=== PATIENT | female | born 1995 | race Caucasian/White ===

== ENCOUNTER 2017-03-23 10:11 | Emergency (ER) | payer OTHER ==
[~2017-03-23] VITALS: Ht 165.1 cm; Wt 57.0 kg
[~2017-03-23 10:11] MED LIST: PRENAT PO
[2017-03-23 10:23] VITALS: Ht 165.1 cm; Wt 57.0 kg
[2017-03-23] MEDS ORDERED: SOD CHLORIDE 0.9% 1,000 ML IV STA (11:02)
[2017-03-23] MEDS ORDERED: ACETAMINOPHEN 325 MG TAB PO STA (11:02)
[2017-03-23] MEDS ORDERED: ONDANSETRON 4 MG INJ IV STA (11:02)
--- NOTE | 2017-03-23 11:45 | RADRPT ---
PROCEDURE: OBSTETRICAL ULTRASOUND WITH ENDOVAGINAL IMAGES CLINICAL INDICATION: Vaginal Bleed () TECHNIQUE: Multiple sonographic images of the pelvis were obtained utilizing a transabdominal and endovaginal technique. The images were reviewed on a PACS workstation. COMPARISON: None. LMP: 12/27/2016 FINDINGS: There is a single live intrauterine with heart rate of 146 beats per minute, mean sa c diameter of 4.93 cm, and crown-rump length of 6.52 cm which is consistent with a gestational age o f 12 weeks, 0 days . The estimated date of delivery by ultrasound is 10/05/2017 . The estimated gestational age by LMP is 12 weeks, 2 days . The estimated date of delivery by LMP is 10/03/2017 . Bilateral ovaries are not visualized. There are no abnormal adnexal masses. No significant pelvic free fluid is identified. IMPRESSION: Single live intrauterine consistent with a gestational age of 12 weeks, 0 days . The estimated date of delivery is 10/05/2017 . Dating by ultrasound is within 2 days of dating by LMP. Bilateral ovaries are not visualized. There are no abnormal adnexal masses. RPTAT: EE Physician Yung Date Time Electronically viewed and signed by Physician Yung on 03/23/2017 11:44 /
[2017-03-23 11:49] LABS: ADD SCAN DIFF NO
[2017-03-23 11:58] LABS: BASOPHILS % 0.2 % (0.0-2.0); EOSINOPHILS % 0.5 % (0.0-7.0); HEMATOCRIT 37.5 % (37.0-47.0); HEMOGLOBIN 12.6 g/dl (12.0-16.0); LYMPHOCYTES # 2.3 10^3/ul (0.8-2.9); LYMPHOCYTES % 26.6 % (15.0-51.0); MEAN CORPUSCULAR HEMOGLOBIN 31.5 pg (29.0-33.0); MEAN CORPUSCULAR HGB CONC 33.6 g/dl (32.0-37.0); MEAN CORPUSCULAR VOLUME 93.8 fl (82.0-101.0); MEAN PLATELET VOLUME 9.2 fl (7.4-10.4); MONOCYTE # 0.4 10^3/ul (0.3-0.9); MONOCYTES % 5.2 % (0.0-11.0); NEUTROPHIL # 5.7 10^3/ul (1.6-7.5); NEUTROPHILS % 67.1 % (39.0-77.0); PLATELET COUNT 269 10^3/UL (140-415); RED CELL DISTRIBUTION WIDTH 12.2 % (11.5-14.5); WHITE BLOOD COUNT 8.5 10^3/ul (4.8-10.8)
[2017-03-23 12:13] LABS: ADD UMIC YES; UR AMORPHOUS CRYSTAL FEW /HPF (NONE SEEN); UR ASCORBIC ACID NEGATIVE (NEGATIVE); UR BILIRUBIN (Dip) NEGATIVE (NEGATIVE); UR BLOOD (Dip) NEGATIVE (NEGATIVE); UR CLARITY SLIGHTLY CLOUDY (CLEAR); UR COLOR YELLOW (YELLOW); UR GLUCOSE (Dip) NEGATIVE (NEGATIVE); UR KETONES (Dip) NEGATIVE (NEGATIVE); UR LEUKOCYTE ESTERASE (Dip) 1+ Leu/ul (NEGATIVE); UR NITRITE (Dip) POSITIVE (NEGATIVE); UR RBC 0 /HPF (0-5); UR TOTAL PROTEIN (Dip) NEGATIVE (NEGATIVE); UR UROBILINOGEN (Dip) NEGATIVE (NEGATIVE)
[2017-03-23 12:19] LABS: INR 0.99; PROTIME 13.1 Sec (12.2-14.2)
[2017-03-23 12:21] LABS: PARTIAL THROMBOPLASTIN TIME 27.5 Sec (25.0-35.0)
[2017-03-23] MEDS ORDERED: CEPH-443 PO (12:24)
[2017-03-23 13:24] LABS: ALBUMIN/GLOBULIN RATIO 1.35; BILIRUBIN,INDIRECT 0.3 mg/dl (0-1.1); BILIRUBIN,TOTAL 0.3 mg/dl (0.2-1.3); CALCIUM 9.6 mg/dl (8.4-10.2); CREATININE 0.58 mg/dl (0.44-1.00); TOTAL PROTEIN 8.7 g/dl (6.1-8.1)
--- NOTE | 2017-03-25 00:50 | ERD ---
ER Documentation Chief Complaint Date/Time DATE: 03/25/17 TIME: 00:45 Chief Complaint n/v/d x 2 days is 12th weeks HPI This patient is a 22-year-old female who is Ab0 LC 1, reportedly 12 weeks with a last menstrual period date of 12/27/2016 presenting to the emergency department with complaints of 5 episodes of nausea with vomiting today. Vomiting was nonbilious and nonbloody. Symptoms are worse with eating. She has taken no medication for relief of symptoms. She also reports a headache yesterday. She reports some mild suprapubic cramping bilaterally but not significant. She denies any vaginal bleeding, fevers, chills, dysuria, or other symptoms. ROS All systems reviewed and are negative except as per history of present illness. Medications Home Meds Active Scripts Cephalexin* (Keflex*) 500 Mg Capsule, 500 MG PO BID for 7 Days, #14 CAP Prov:MATEO HUMPHRIES PA-C 03/23/17 Reported Medications Multivit/Min/Fol Ac/Iron/Pren* ( S*) 1 Tab Tab, 1 TAB PO DAILY, TAB 12/16/14 Allergies Allergies: Coded Allergies: carrot (Unverified Allergy, Unknown, THROAT SWELLS, 03/23/17) pineapple (Unverified Allergy, Unknown, HIVES, 03/23/17) PMhx/Soc Medical and Surgical Hx: pt denies Medical Hx, pt denies Surgical Hx Hx Psychiatric Problems: No Hx Alcohol Use: No Hx Substance Use: No Hx Tobacco Use: No Smoking Status: Never smoker FmHx Noncontributory for chief complaint Physical Exam Vitals Vital Signs Date Time Temp Pulse Resp B/P Pulse Ox O2 Delivery O2 Flow Rate FiO2 03/23/17 10:23 98.6 100 18 100/61 98 Physical Exam Const: Nontoxic, well-appearing female in no acute distress. Head: Atraumatic Eyes: Normal Conjunctiva ENT: Normal External Ears, Nose and Mouth. Neck: Full range of motion..~ No meningismus. Resp: Clear to auscultation bilaterally Cardio: Regular rate and rhythm, no murmurs Abd: Gravid abdomen, soft, non tender, non distended. Normal bowel sounds : Mild suprapubic tenderness palpation bilaterally. There is no CVA tenderness. Skin: No petechiae or rashes Back: No midline or flank tenderness Ext: No cyanosis, or edema Neur: Awake and alert Psych: Normal Mood and Affect Result Diagram: 03/23/17 1130 03/23/17 1130 Results 24 hrs Laboratory Tests Test 03/23/17 11:30 White Blood Count 8.510^3/ul Red Blood Count 4.0010^6/ul Hemoglobin 12.6g/dl Hematocrit 37.5% Mean Corpuscular Volume 93.8fl Mean Corpuscular Hemoglobin 31.5pg Mean Corpuscular Hemoglobin Concent 33.6g/dl Red Cell Distribution Width 12.2% Platelet Count 16272^3/UL Mean Platelet Volume 9.2fl Neutrophils % 67.1% Lymphocytes % 26.6% Monocytes % 5.2% Eosinophils % 0.5% Basophils % 0.2% Nucleated Red Blood Cells % 0.0/100WBC Neutrophils # 5.710^3/ul Lymphocytes # 2.310^3/ul Monocytes # 0.410^3/ul Eosinophils # 0.010^3/ul Basophils # 0.010^3/ul Nucleated Red Blood Cells # 0.010^3/ul Prothrombin Time 13.1Sec Prothrombin Time Ratio 1.0 INR International Normalized Ratio 0.99 Activated Partial Thromboplast Time 27.5Sec Urine Color YELLOW Urine Clarity SLIGHTLY CLOUDY Urine pH 6.0 Urine Specific [place] 1.020 Urine Ketones NEGATIVEmg/dL Urine Nitrite POSITIVEmg/dL Urine Bilirubin NEGATIVEmg/dL Urine Urobilinogen NEGATIVEmg/dL Urine Leukocyte Esterase 1+Laura/ul Urine Microscopic RBC 0/HPF Urine Microscopic WBC 0/HPF Urine Amorphous Crystals FEW/HPF Urine Hemoglobin NEGATIVEmg/dL Urine Glucose NEGATIVEmg/dL Urine Total Protein NEGATIVEmg/dl Sodium Level 137mmol/L Potassium Level 4.0mmol/L Chloride Level 102mmol/L Carbon Dioxide Level 24mmol/L Anion Gap 15 Blood Urea Nitrogen 8mg/dl Creatinine 0.58mg/dl Glucose Level 91mg/dl Calcium Level 9.6mg/dl Total Bilirubin 0.3mg/dl Direct Bilirubin 0.00mg/dl Indirect Bilirubin 0.3mg/dl Aspartate Amino Transf (AST/SGOT) 29IU/L Alanine Aminotransferase (ALT/SGPT) 34IU/L Alkaline Phosphatase 69IU/L Total Protein 8.7g/dl Albumin 5.0g/dl Globulin 3.70g/dl Albumin/Globulin Ratio 1.35 Beta HCG, Quantitative 65889.0mIU/ml Current Medications Medications (Trade) Dose Ordered Sig/Christel Route PRN Reason Start Time Stop Time Status Last Admin Dose Admin Sodium Chloride (NS) 1,000 ml @ 1,000 mls/hr Q1H STAT IV 03/23/17 11:02 03/23/17 12:01 DC 03/23/17 11:15 Acetaminophen (Tylenol Tab) 650 mg ONCE STAT PO 03/23/17 11:02 03/23/17 11:04 DC 03/23/17 11:15 Ondansetron HCl (Zofran Inj) 4 mg ONCE STAT IV 03/23/17 11:02 03/23/17 11:04 DC 03/23/17 11:14 [place] [id number] Radiology Main Line: [phone] DIAGNOSTIC IMAGING REPORT Patient: HANG FARRELL : 1995 Age: 22 Sex: F MR #: [id number] DOS: 03/23/17 1102 Ordering MD: MATEO HUMPHRIES PA-C Location: [facility] Room/Bed: PROCEDURE: OBSTETRICAL ULTRASOUND WITH ENDOVAGINAL IMAGES CLINICAL INDICATION: Vaginal Bleed () TECHNIQUE: Multiple sonographic images of the pelvis were obtained utilizing a transabdominal and endovaginal technique. The images were reviewed on a PACS workstation. COMPARISON: None. LMP: 12/27/2016 FINDINGS: There is a single live intrauterine with heart rate of 146 beats per minute, mean sac diameter of 4.93 cm, and crown-rump length of 6.52 cm which is consistent with a gestational age of 12 weeks, 0 days . The estimated date of delivery by ultrasound is 10/05/2017 . The estimated gestational age by LMP is 12 weeks, 2 days . The estimated date of delivery by LMP is 10/03/2017 . Bilateral ovaries are not visualized. There are no abnormal adnexal masses. No significant pelvic free fluid is identified. IMPRESSION: Single live intrauterine consistent with a gestational age of 12 weeks , 0 days . The estimated date of delivery is 10/05/2017 . Dating by ultrasound is within 2 days of dating by LMP. Bilateral ovaries are not visualized. There are no abnormal adnexal masses. RPTAT: EE Physician Yung Date Time Electronically viewed and signed by Daniel Petersen Physician on 03/23/2017 11:44 RA/ CC: MATEO HUMPHRIES PA-C Procedures/[facility] EMERGENCY DEPARTMENT COURSE / MEDICAL DECISION MAKING: This is a 22-year-old female who comes to the emergency room secondary to complaints of nausea, headache, and bilateral suprapubic cramping. The patient was given Tylenol p.o. and Zofran p.o. and IV fluids in the department. On re-evaluation, the patient was feeling improved. Lab results reviewed and showed no significant acute abnormalities. Beta hCG was consistent with term of . Urinalysis was concerning for urinary tract infection. Radiology: First trimester OB ultrasound impression: Single live intrauterine consistent with a gestational age of 12 weeks , 0 days . The estimated date of delivery is 10/05/2017 . Dating by ultrasound is within 2 days of dating by LMP. Bilateral ovaries are not visualized. There are no abnormal adnexal masses. The primary diagnosis is urinary tract infection. Secondary diagnosis is vomiting during . I have low suspicion for ectopic , ovarian torsion, tubo-ovarian cyst, tubo-ovarian abscess, acute abdomen, septicemia, or other emergent conditions at this time. Discharge: I have discussed the lab results and diagnostic findings with the patient and answered any questions or concerns. The patient was discharged with a prescription for cephalexin for urinary tract infection. The patient was advised to followup with their PMD in 1-2 days and to return to the Emergency Department if there are any new or worsening symptoms. The patient was advised to have close follow-up with her [facility] physician. The patient understood and agreed with the diagnosis, treatment and plan. The patient is stable for discharge at this time. Departure Diagnosis: Primary Impression: Urinary tract infection Additional Impression: Vomiting during Condition: Fair Patient Instructions: Understanding Urinary Tract Infections (UTIs), , Established, Normal Symptoms Referrals: COMMUNITY CLINICS YOU HAVE RECEIVED A MEDICAL SCREENING EXAM AND THE RESULTS INDICATE THAT YOU DO NOT HAVE A CONDITION THAT REQUIRES URGENT TREATMENT IN THE EMERGENCY DEPARTMENT. FURTHER EVALUATION AND TREATMENT OF YOUR CONDITION CAN WAIT UNTIL YOU ARE SEEN IN YOUR DOCTORS OFFICE WITHIN THE NEXT 1-2 DAYS. IT IS YOUR RESPONSIBILITY TO MAKE AN APPOINTMENT FOR FOLOW-UP CARE. IF YOU HAVE A PRIMARY DOCTOR --you should call your primary doctor and schedule an appointment IF YOU DO NOT HAVE A PRIMARY DOCTOR YOU CAN CALL OUR PHYSICIAN REFERRAL HOTLINE AT IF YOU CAN NOT AFFORD TO SEE A PHYSICIAN YOU CAN CHOSE FROM THE FOLLOWING [facility] [address] [facility] [address] [facility] [address] [facility] [address] [facility]. [facility] [address] [facility] [address] [place] Additional Instructions: Follow up with your PCP within the next 1-3 days for a repeat evaluation and a possible referral to a specialist, if required. Return the the emergency department immediately if symptoms worsen or change. If you have any questions regarding medications, ask your pharmacist or us before you leave. If any adverse reactions, occur while taking your medications, discontinue the treatment and return to the emergency department immediately. If any new or worsening symptoms, uncontrolled fevers, or other unexplained symptoms occur, return to the emergency department immediately. Take your medications as directed, and complete the entire course of treatment. MATEO HUMPHRIES PA-C Mar 25, 2017 00:50
== END 2017-03-23 12:46 | disposition home or self-care (01) ==
LOC: FTE 10:11
DX: O23.41 Unspecified infection of urinary tract in pregnancy, first trimester (principal); R10.9 Unspecified abdominal pain; Z3A.12 12 weeks gestation of pregnancy
CPT/HCPCS: 76801; 80053; 81001; 84702; 85025; 85610; 85730; 86900; 86901; 87086; J2405; J7030; Z7610; 36415; 96374

== ENCOUNTER 2017-08-16 18:35 | Outpatient (CLI) | payer OTHER ==
[~2017-08-16] VITALS: Ht 165.1 cm; Wt 66.8 kg
[~2017-08-16 18:35] MED LIST changes: +CEPH-443 PO
[2017-08-16 18:48] VITALS: Ht 165.1 cm; Wt 66.8 kg
[2017-08-16 18:49] VITALS: BP 122/73; PULSE 88; RESP 20
--- NOTE | 2017-08-16 19:58 | RADRPT ---
PROCEDURE: US biophysical profile. CLINICAL INDICATION: heart deceleration TECHNIQUE: Multiple sonographic images of the uterus were obtained. The images were revi ewed on a PACS workstation. COMPARISON: No prior studies are available for comparison. FINDINGS: There is a single live intrauterine gestation. heart rate is 132 beats per minute. The position is cephalic. The placenta is fundal grade II The NESHA is 10.7 cm. (Normal = 5-20 cm.) Breathing Movement: 2 Gross Body Movement: 2 Tone: 2 Qualitative Amniotic Fluid Volume: 2 TOTAL: 8 IMPRESSION: 1. The biophysical score is 8/8. 2. The NESHA = 10.7 cm RPTAT: QQ .Jay uRbi MD, Date Time Electronically viewed and signed by .Jay Rubi MD, on 08/16/2017 19:58 .K/
--- NOTE | 2017-08-16 20:36 | PN ---
Triage Information Date/Time Reason for visit: DFHR Weeks of Gestation 33 weeks /Para Diabetes: none Objective Vital Signs Date Time Temp Pulse Resp B/P Pulse Ox O2 Delivery O2 Flow Rate FiO2 08/16/17 18:49 98.0 88 20 122/73 Room Air Heart Rate: 130's Heart Rate Comments Category I Contractions: None Results/Medications Imaging Results BPP 05/10 Disposition: Discharge Assessment/Plan Antepartum Testing Reassuring YUMIKO BRANTLEY MD Aug 16, 2017 20:36
--- NOTE | 2017-08-16 23:47 | TRIAGE ---
OB Triage Datetime Report Generated by CPN: 08/16/2017 23:47 Datetime: 08/16/2017 20:44 Stage of : OB Triage Datetime: 08/16/2017 19:38 Maternal Assessment Level of Consciousness: Fully Conscious DTR's/Clonus: DTRs 2+; No Clonus Headache: Denies Blurred Vision: No Respiratory Effort: Unlabored; Regular Rhythm; Equal Expansion Nausea/Vomiting: Denies RUQ Epigastric Pain: Denies Pain Assessment Pain Scale: 0 Pain Presence: None/Denies Pain Type: N/A Datetime: 08/16/2017 18:45 Stage of : OB Triage Assessment Type: Triage Time of Arrival: 08/16/2017 18:30 EGA: 33.1 Arrived By: Ambulatory Arrived From: Dr. Robledo Chief Complaint: PT SENT BY CLINIC FOR AUDIBLE LOW FHT FOR 3 MINUTES Movement: Present Contractions: Denies/Absent Rupture of Membranes: Denies Vaginal Bleeding: None Vaginal Discharge: Denies Recent Sexual Intercouse: Denies Abdominal Trauma: Not Applicable Patient Complaints: None Time Provider Notified: 08/16/2017 20:19 Provider Notified: ABUSLEME Initial Plan: NST, BPP Maternal Assessment Level of Consciousness: Fully Conscious DTR's/Clonus: DTRs 2+; No Clonus Headache: Denies Blurred Vision: No Respiratory Effort: Unlabored; Regular Rhythm; Equal Expansion Breath Sounds, Left: Clear and Equal Breath Sounds, Right: Clear and Equal Nausea/Vomiting: Denies RUQ Epigastric Pain: Denies Lower Extremities Edema: None Degree: None Upper Extremities Edema: None Degree: None Facial Edema: None Temperature Route: Axillary Fall Risk Assessment History of Falling: (0) No Secondary Diagnosis: (0) No Ambulatory Aid: (0) Bedrest/Nurse Assist IV Therapy: (0) No Gait: (0) Normal/Bedrest/Immobile Mental Status: (0) Oriented to Own Ability Fall Score: 0 Fall Risk Score Definition: No Risk: No action required
== END 2017-08-16 20:48 | disposition home or self-care (01) ==
LOC: OBT 18:35 → L-D 18:37 → OBT 20:48
PROVIDERS: ATTEND Obstetrics & Gynecology
DX: O76 Abnormality in fetal heart rate and rhythm complicating labor and delivery (principal); Z3A.33 33 weeks gestation of pregnancy
CPT/HCPCS: 76818; Z7500; G0463

== ENCOUNTER 2017-08-23 07:43 | Outpatient (CLI) | payer OTHER ==
[~2017-08-23] VITALS: Ht 165.1 cm; Wt 67.4 kg
[2017-08-23 07:54] VITALS: Ht 165.1 cm; Wt 67.4 kg
[2017-08-23 07:55] VITALS: BP 119/77; PULSE 72; RESP 18
--- NOTE | 2017-08-23 08:36 | RADRPT ---
PROCEDURE: US OB biophysical profile. CLINICAL INDICATION: decreased movements TECHNIQUE: Multiple sonographic images of the pelvis were obtained. The images were reviewed on a PACS workstation. COMPARISON: 08/16/17 FINDINGS: There is a single viable intrauterine gestation. Cardiac activity is present with 126 beats per min dash. There is a vertex presentation. The placenta is posterior. There is no evidence of placental abruption. There is a normal amount of amniotic fluid with an NESHA = 10.5 cm. No evidence of nuchal cord. Biophysical profile: movement 2/2 tone 2/2. breathing 2/2 NESHA 2/2 Total 05/10 RPTAT: AA . IMPRESSION: Normal biophysical profile. . .Miguel Ortega MD, Date Time Electronically viewed and signed by .Miguel Ortega MD, MD on 08/23/2017 08:36 .S/
--- NOTE | 2017-08-23 08:55 | PN ---
Triage Information Date/Time Reason for visit: NST BPP Weeks of Gestation 34+wks with audible decel at office /Para 2/1 Diabetes: none Hypertention: none Objective Vital Signs Date Time Temp Pulse Resp B/P Pulse Ox O2 Delivery O2 Flow Rate FiO2 08/23/17 07:55 99.3 72 18 119/77 99 Room Air Heart Rate: 140's Contractions: None Disposition: Discharge Assessment/Plan NST reassuring BPP 05/10 ALISSA GAMBLE M.D. Aug 23, 2017 08:55
--- NOTE | 2017-08-23 09:04 | TRIAGE ---
OB Triage Datetime Report Generated by CPN: 08/23/2017 09:04 Datetime: 08/23/2017 08:50 Stage of : OB Triage Maternal Assessment Level of Consciousness: Fully Conscious Labor Evaluation Frequency: NONE Monitor Mode: External Resting Tone [place]: Relaxed Heart Rate FHR Baseline Rate: 135 Monitor Mode: External US Variability: Moderate 6-25 bpm Accelerations: 15X15 Decelerations: None Category: Category I Pain Assessment Pain Scale: 0 Pain Goal: 3 Vaginal Exam Membrane Status: Intact Vaginal Bleeding: None Datetime: 08/23/2017 07:52 Assessment Type: Triage Maternal Assessment Level of Consciousness: Fully Conscious DTR's/Clonus: DTRs 2+; No Clonus Headache: Denies Blurred Vision: No Respiratory Effort: Unlabored; Regular Rhythm; Equal Expansion Breath Sounds, Left: Clear and Equal Breath Sounds, Right: Clear and Equal Nausea/Vomiting: Denies RUQ Epigastric Pain: Denies Lower Extremities Edema: None Degree: None Upper Extremities Edema: None Degree: None Facial Edema: None Fall Risk Assessment History of Falling: (0) No Secondary Diagnosis: (0) No Ambulatory Aid: (0) Bedrest/Nurse Assist IV Therapy: (0) No Gait: (0) Normal/Bedrest/Immobile Mental Status: (0) Oriented to Own Ability Fall Score: 0 Fall Risk Score Definition: No Risk: No action required Datetime: 08/23/2017 07:49 Monitor Mode: External Monitor Mode: External US Datetime: 08/23/2017 07:47 Time of Arrival: 08/23/2017 07:38 EGA: 34.1 Arrived By: Ambulatory Arrived From: Home Chief Complaint: PT HERE FOR F/U NST/BPP FOR LOW FHT'S IN OFFICE LAST WEEK Movement: Present Contractions: Denies/Absent Rupture of Membranes: Denies Vaginal Discharge: Denies Recent Sexual Intercouse: Denies Abdominal Trauma: Not Applicable Patient Complaints: None Time Provider Notified: 08/23/2017 08:45 Provider Notified: ABSULEME Initial Plan: NST/BPP Datetime: 08/16/2017 20:32 Labor Evaluation Frequency: 0 Monitor Mode: External Resting Tone [place]: Relaxed Heart Rate FHR Baseline Rate: 125 Monitor Mode: External US Variability: Moderate 6-25 bpm Accelerations: 15X15 Decelerations: None Category: Category I Datetime: 08/16/2017 20:00 Monitor Mode: External Resting Tone [place]: Relaxed Heart Rate FHR Baseline Rate: 125 Monitor Mode: External US Variability: Moderate 6-25 bpm Accelerations: 15X15 Decelerations: None Category: Category I Datetime: 08/16/2017 18:45 EGA: 33.1 Fall Score: 0 Fall Risk Score Definition: No Risk: No action required
== END 2017-08-23 09:25 | disposition home or self-care (01) ==
LOC: L-D 07:43 → OBT 07:43
PROVIDERS: ATTEND Obstetrics & Gynecology
DX: O36.8130 Decreased fetal movements, third trimester, not applicable or unspecified (principal); Z3A.34 34 weeks gestation of pregnancy
CPT/HCPCS: 76818; Z7500; G0463

== ENCOUNTER 2017-08-30 08:20 | Outpatient (CLI) | payer OTHER ==
[~2017-08-30 08:20] MED LIST changes: -CEPH-443 PO
--- NOTE | 2017-08-30 09:17 | RADRPT ---
PROCEDURE: Obstetrical ultrasound for biophysical profile CLINICAL INDICATION: Biophysical profile. . TECHNIQUE: Obstetrical ultrasound of the uterus for biophysical profile. Transabdominal views are obtained. COMPARISON: US PELVIS 08/23/2017 FINDINGS: Single intrauterine gestation. Presentation: Cephalic. Placenta: Posterior No evidence of placental abruption. No evidence of placenta previa. breathing movement = 2/2 tone = 2/2 motion = 2/2 NESHA = 2/2 NESHA = 12.3 cm heart rate: 132 beats per minute IMPRESSION: Single intrauterine gestation. Biophysical profile 05/10 RPTAT: AADD .Sreedhar Marie MD, MD Date Time Electronically viewed and signed by .Sreedhar Marie MD, on 08/30/2017 09:17 .B/
--- NOTE | 2017-08-30 09:53 | TRIAGE ---
OB Triage Datetime Report Generated by CPN: 08/30/2017 09:53 Datetime: 08/30/2017 09:25 Stage of : OB Triage Maternal Assessment Level of Consciousness: Fully Conscious DTR's/Clonus: DTRs 1+ Headache: Denies Breath Sounds, Left: Clear and Equal Breath Sounds, Right: Clear and Equal Nausea/Vomiting: Denies RUQ Epigastric Pain: Denies Labor Evaluation Frequency: NONE Monitor Mode: External Resting Tone [place]: Relaxed Heart Rate FHR Baseline Rate: 120 Monitor Mode: External US Variability: Moderate 6-25 bpm Accelerations: 15X15 Decelerations: None Category: Category I Pain Assessment Pain Scale: 0 Pain Presence: None/Denies Pain Type: N/A Pain Goal: 3 Vaginal Exam Membrane Status: Intact Datetime: 08/30/2017 08:59 Maternal Assessment Level of Consciousness: Fully Conscious DTR's/Clonus: DTRs 1+ Headache: Denies Blurred Vision: No Respiratory Effort: Unlabored Breath Sounds, Left: Clear and Equal Breath Sounds, Right: Clear and Equal Nausea/Vomiting: Denies RUQ Epigastric Pain: Denies Facial Edema: None Labor Evaluation Frequency: NONE Monitor Mode: External Resting Tone [place]: Relaxed Heart Rate FHR Baseline Rate: 125 Monitor Mode: External US Variability: Moderate 6-25 bpm Accelerations: 15X15 Decelerations: None Category: Category I Pain Assessment Pain Scale: 0 Pain Presence: None/Denies Pain Type: N/A Pain Goal: 3 Vaginal Exam Membrane Status: Intact Datetime: 08/30/2017 08:25 Assessment Type: Triage Maternal Assessment Level of Consciousness: Fully Conscious DTR's/Clonus: DTRs 2+; No Clonus Headache: Denies Blurred Vision: No Respiratory Effort: Unlabored; Regular Rhythm; Equal Expansion Breath Sounds, Left: Clear and Equal Breath Sounds, Right: Clear and Equal Nausea/Vomiting: Denies RUQ Epigastric Pain: Denies Lower Extremities Edema: None Degree: None Upper Extremities Edema: None Degree: None Facial Edema: None Fall Risk Assessment History of Falling: (0) No Secondary Diagnosis: (0) No Ambulatory Aid: (0) Bedrest/Nurse Assist IV Therapy: (0) No Gait: (0) Normal/Bedrest/Immobile Mental Status: (0) Oriented to Own Ability Fall Score: 0 Fall Risk Score Definition: No Risk: No action required Datetime: 08/30/2017 08:17 Time of Arrival: 08/30/2017 08:17 EGA: 35.1 Arrived By: Ambulatory Arrived From: Home Chief Complaint: PT CAME BACK FOR NST AND BPP FOR LOW HEART RATE Movement: Present Contractions: Denies/Absent Rupture of Membranes: Denies Vaginal Bleeding: None Vaginal Discharge: Denies Recent Sexual Intercouse: Denies Abdominal Trauma: Not Applicable Patient Complaints: Other Additional Patient Complaints: NONE Time Provider Notified: 08/30/2017 09:00 Provider Notified: DR KUMAR Initial Plan: NST AND BPP Datetime: 08/23/2017 07:52 Fall Score: 0 Fall Risk Score Definition: No Risk: No action required Datetime: 08/23/2017 07:47 EGA: 34.1 Datetime: 08/16/2017 18:45 EGA: 33.1 Fall Score: 0 Fall Risk Score Definition: No Risk: No action required
== END 2017-08-30 09:48 | disposition home or self-care (01) ==
LOC: OBT 08:20 → L-D 08:20 → OBT 09:48
PROVIDERS: ATTEND Obstetrics & Gynecology
DX: O76 Abnormality in fetal heart rate and rhythm complicating labor and delivery (principal); Z3A.34 34 weeks gestation of pregnancy
CPT/HCPCS: 76818; Z7500; G0463

== ENCOUNTER 2017-09-06 18:40 | Outpatient (CLI) | payer OTHER ==
--- NOTE | 2017-08-30 11:17 | PN ---
Triage Information Date/Time Reason for visit: NST BPP Weeks of Gestation 35+ /Para .. Diabetes: gestational Diabetes management: diet controlled Hypertention: none Objective Heart Rate: 140's Contractions: None Disposition: Discharge Assessment/Plan NST reassuring [place] No CTXs BPP 05/10 -->discharged with precautions ALISSA GAMBLE M.D. Aug 30, 2017 11:17
[~2017-09-06] VITALS: Ht 165.1 cm; Wt 69.4 kg
[2017-09-06 19:02] VITALS: BP 120/85; PULSE 69; RESP 18; Ht 165.1 cm; Wt 69.4 kg
[2017-09-06] MEDS ORDERED: FER325 PO (19:02)
--- NOTE | 2017-09-06 19:56 | RADRPT ---
PROCEDURE: US OB. CLINICAL INDICATION: Low heart rate TECHNIQUE: Pelvic ultrasound performed for biophysical profile. COMPARISON: 08/30/2017 FINDINGS: Single intrauterine gestation present with heart rate at 133 beats per minute. Presentation is ceph alic. Placenta is posterior, grade II. Biophysical profile score is 8/8 (breathing=2, movement=2, tone =2, fluid volume=2). Amniotic fluid volume is within normal limits, with NESHA = 9.92 cm. RPTAT:PARRISH IMPRESSION: 1. Biophysical profile score 8/8. 2. heartbeat estimated at 133 beats per minute, similar to the prior study of 08/30/2017. 3. Amniotic fluid index 9.9 cm, previously 12.4 cm on the study of 08/30/2017. Physician Hermelindo Date Time Electronically viewed and signed by Physician Hermelindo on 09/06/2017 19:56 /
--- NOTE | 2017-09-06 20:07 | TRIAGE ---
OB Triage Datetime Report Generated by CPN: 09/06/2017 20:07 Datetime: 09/06/2017 20:00 Stage of : OB Triage Maternal Assessment Level of Consciousness: Fully Conscious Labor Evaluation Frequency: NONE Monitor Mode: External Resting Tone [place]: Relaxed Heart Rate FHR Baseline Rate: 125 Monitor Mode: External US Variability: Moderate 6-25 bpm Accelerations: 15X15 Decelerations: None Category: Category I Pain Assessment Pain Scale: 0 Pain Goal: 3 Vaginal Exam Membrane Status: Intact Vaginal Bleeding: None Datetime: 09/06/2017 18:59 Assessment Type: Triage Maternal Assessment Level of Consciousness: Fully Conscious DTR's/Clonus: DTRs 2+; No Clonus Headache: Denies Blurred Vision: No Respiratory Effort: Unlabored; Regular Rhythm; Equal Expansion Breath Sounds, Left: Clear and Equal Breath Sounds, Right: Clear and Equal Nausea/Vomiting: Denies RUQ Epigastric Pain: Denies Lower Extremities Edema: None Degree: None Upper Extremities Edema: None Degree: None Facial Edema: None Fall Risk Assessment History of Falling: (0) No Secondary Diagnosis: (0) No Ambulatory Aid: (0) Bedrest/Nurse Assist IV Therapy: (0) No Gait: (0) Normal/Bedrest/Immobile Mental Status: (0) Oriented to Own Ability Fall Score: 0 Fall Risk Score Definition: No Risk: No action required Datetime: 09/06/2017 18:57 Time of Arrival: 09/06/2017 18:37 EGA: 36.1 Arrived By: Ambulatory Arrived From: Home Chief Complaint: PT HERE FOR NST/BPP FOR H/O AUDIBLE DECELS Movement: Present Contractions: Denies/Absent Rupture of Membranes: Denies Vaginal Bleeding: None Vaginal Discharge: Denies Recent Sexual Intercouse: Denies Abdominal Trauma: Not Applicable Patient Complaints: None Time Provider Notified: 09/06/2017 20:00 Provider Notified: ABUSLEME Initial Plan: NST/BPP Datetime: 09/06/2017 18:56 Monitor Mode: External Monitor Mode: External US Datetime: 08/30/2017 09:35 Stage of : OB Triage Datetime: 08/30/2017 08:25 Fall Score: 0 Fall Risk Score Definition: No Risk: No action required Datetime: 08/30/2017 08:17 EGA: 35.1 Datetime: 08/23/2017 07:52 Fall Score: 0 Fall Risk Score Definition: No Risk: No action required Datetime: 08/23/2017 07:47 EGA: 34.1 Datetime: 08/16/2017 18:45 EGA: 33.1 Fall Score: 0 Fall Risk Score Definition: No Risk: No action required
--- NOTE | 2017-09-06 20:12 | PN ---
Triage Information Date/Time Reason for visit: DFM Weeks of Gestation 22 years old AT 36.1 WEEKS WITH DECREASED MOVEMENT /Para 2/1 Diabetes: none Hypertention: none Additional information NST REACTIVE AND BPP 05/10 Objective Vital Signs Date Time Temp Pulse Resp B/P Pulse Ox O2 Delivery O2 Flow Rate FiO2 09/06/17 19:02 98.9 69 18 120/85 99 Room Air Heart Rate: 130's Contractions: None Disposition: Discharge Assessment/Plan REPEAT IN 1 WEEK XIAO GUAMAN MD Sep 06, 2017 20:12
== END 2017-09-06 20:15 | disposition home or self-care (01) ==
LOC: OBT 18:40 → L-D 18:42 → OBT 20:00
PROVIDERS: ATTEND Obstetrics & Gynecology
DX: O24.410 Gestational diabetes mellitus in pregnancy, diet controlled (principal); Z3A.35 35 weeks gestation of pregnancy
CPT/HCPCS: 76818; Z7500; G0463

== ENCOUNTER 2017-09-14 18:51 | Outpatient (CLI) | payer OTHER ==
[~2017-09-14] VITALS: Ht 165.1 cm; Wt 70.1 kg
[~2017-09-14 18:51] MED LIST changes: +FER325 PO
--- NOTE | 2017-09-14 20:29 | RADRPT ---
PROCEDURE: OB ultrasound for biophysical profile CLINICAL INDICATION: Small for gestational age. TECHNIQUE: Multiple sonographic images of the gravid uterus performed. The images were reviewed on a PACS workstation. COMPARISON: 09/06/2017 FINDINGS: A single live intrauterine is identified with heart rate of 126 bpm. Fet us is in a cephalic presentation. Placenta is located posteriorly. Biophysical profile: breathing movement = 2/2 tone = 2/2 motion = 2/2 NESHA = 2/2 NESHA = 14.38 cm. IMPRESSION: 1. Single live intrauterine gestation. 2. Biophysical profile = 8/8. 3. NESHA = 14.38 cm. RPTAT: HMVK .Zaki Duque MD, Date Time Electronically viewed and signed by .Zaki Duque MD, MD on 09/14/2017 20:29 .K/
--- NOTE | 2017-09-14 20:31 | RADRPT ---
PROCEDURE: Obstetrical ultrasound. CLINICAL INDICATION: , evaluation. Pelvic pain. TECHNIQUE: Transabdominal sonographic images of the uterus obtained after first trimester , greater than 14 weeks gestation. Single intrauterine gestation present. COMPARISON: US PELVIS 09/06/2017; US PELVIS 08/30/2017 FINDINGS: Single intrauterine gestation. There is a cephalic presentation. Measurements were made in order to determine age. The results are as follows: BPD = 36 weeks 2 day(s) HC = 37 weeks 4 day(s) AC = 37 weeks 1 day(s) FL = 37 weeks 2 day(s) NESHA = not measured Heart rate = 137 beats per minute The placenta is posterior. There is no evidence for an abruption or placenta previa. Ovaries are not visualized. IMPRESSION: Single intrauterine gestation of approximately 37 weeks 1 days by ultrasound criteria. [place] estimated weight = 3133 g; 54 percentile for gestational age of 37 weeks 2 days. RPTAT: AADD .Sreedhar Marie MD, MD Date Time Electronically viewed and signed by .Sreedhar Marie MD, on 09/14/2017 20:31 .B/
[2017-09-14 21:00] VITALS: BP 133/83; PULSE 72; RESP 18
--- NOTE | 2017-09-14 22:11 | TRIAGE ---
OB Triage Datetime Report Generated by CPN: 09/14/2017 22:10 Datetime: 09/14/2017 21:10 Stage of : OB Triage Datetime: 09/14/2017 20:29 Stage of : OB Triage Labor Evaluation Monitor Mode: External Quality: Mild Pattern: Normal: <= 5 Contractions in 10 Minutes Resting Tone [place]: Relaxed Heart Rate FHR Baseline Rate: 120 Monitor Mode: External US Variability: Moderate 6-25 bpm Accelerations: 15X15 Decelerations: None Category: Category I Pain Presence: None/Denies Datetime: 09/14/2017 19:40 Time of Arrival: 09/14/2017 18:46 EGA: 37.2 Arrived By: Ambulatory Arrived From: Dr. Robledo Chief Complaint: sent from clinic for NST/BPP/EFW for poss SGA vs IUGR Movement: Present Contractions: Denies/Absent Rupture of Membranes: Denies Vaginal Bleeding: None Vaginal Discharge: Denies Recent Sexual Intercouse: Denies Abdominal Trauma: Not Applicable Patient Complaints: None Time Provider Notified: 09/14/2017 20:58 Provider Notified: Dr Villagran Initial Plan: NST/BPP/EFW Datetime: 09/14/2017 19:34 Stage of : OB Triage Maternal Assessment Level of Consciousness: Fully Conscious Headache: Denies Blurred Vision: No Nausea/Vomiting: Denies RUQ Epigastric Pain: Denies Facial Edema: None Labor Evaluation Monitor Mode: External Resting Tone [place]: Relaxed Heart Rate FHR Baseline Rate: 135 Monitor Mode: External US Pain Assessment Pain Scale: 0 Pain Presence: None/Denies Pain Type: N/A Datetime: 09/06/2017 18:59 Fall Risk Assessment Fall Score: 0 Fall Risk Score Definition: No Risk: No action required Datetime: 09/06/2017 18:57 EGA: 36.1 Datetime: 08/30/2017 08:25 Fall Risk Assessment Fall Score: 0 Fall Risk Score Definition: No Risk: No action required Datetime: 08/30/2017 08:17 EGA: 35.1 Datetime: 08/23/2017 07:52 Fall Risk Assessment Fall Score: 0 Fall Risk Score Definition: No Risk: No action required Datetime: 08/23/2017 07:47 EGA: 34.1 Datetime: 08/16/2017 18:45 EGA: 33.1 Fall Risk Assessment Fall Score: 0 Fall Risk Score Definition: No Risk: No action required
--- NOTE | 2017-09-14 22:51 | PN ---
Triage Information Date/Time September 14, 2017 Reason for visit: Rule out for small for gestational age Weeks of Gestation 37 weeks and 2 days /Para 2 para 1 Diabetes: none Hypertention: none Additional information 22-year-old with IUP at 37 weeks and 2 days with care with Dr. Austin, presented for ultrasound evaluation possible small for gestational age. Rule out IUGR Patient denies any leaking of fluid, vaginal bleeding or decreased movement or any other complaint Objective Vital Signs Date Time Temp Pulse Resp B/P Pulse Ox O2 Delivery O2 Flow Rate FiO2 09/14/17 21:00 98.5 72 18 133/83 Room Air Heart Rate: 130's Contractions: None Exam General appearance: Alert and oriented 4. Patient does not appear to be in any acute distress. Abdomen: Soft, gravid, nontender no rebound tenderness Extremities: No calf tenderness, no click no edema Formal growth ultrasound: Estimated weight: 54 percentile, appropriate for gestational age NESHA: 14.38 cm Results/Medications Imaging Results PROCEDURE: OB ultrasound for biophysical profile CLINICAL INDICATION: Small for gestational age. TECHNIQUE: Multiple sonographic images of the gravid uterus performed. The images were reviewed on a PACS workstation. COMPARISON: 09/06/2017 FINDINGS: A single live intrauterine is identified with heart rate of 126 bpm. Fetus is in a cephalic presentation. Placenta is located posteriorly. Biophysical profile: breathing movement = 2/2 tone = 2/2 motion = 2/2 NESHA = 2/2 NESHA = 14.38 cm. IMPRESSION: 1. Single live intrauterine gestation. 2. Biophysical profile = 8/8. 3. NESHA = 14.38 cm. PROCEDURE: Obstetrical ultrasound. CLINICAL INDICATION: , evaluation. Pelvic pain. TECHNIQUE: Transabdominal sonographic images of the uterus obtained after first trimester, greater than 14 weeks gestation. Single intrauterine gestation present. COMPARISON: US PELVIS 09/06/2017; US PELVIS 08/30/2017 FINDINGS: Single intrauterine gestation. There is a cephalic presentation. Measurements were made in order to determine age. The results are as follows: BPD = 36 weeks 2 day(s) HC = 37 weeks 4 day(s) AC = 37 weeks 1 day(s) FL = 37 weeks 2 day(s) NESHA = not measured Heart rate = 137 beats per minute The placenta is posterior. There is no evidence for an abruption or placenta previa. Ovaries are not visualized. IMPRESSION: Single intrauterine gestation of approximately 37 weeks 1 days by ultrasound criteria. [place] estimated weight = 3133 g; 54 percentile for gestational age of 37 weeks 2 days. RPTAT: AADD Disposition: Discharge Assessment/Plan IUP at 37 weeks and [address] Austin Ultrasound showed appropriate growth. Estimated weight 54 percentile shows appropriate for gestational age testing reassuring BPP: 05/10. NST category 1 Adequate amniotic fluid Discussed with Primary OB., Recommended to be seen in the office in 1 week Patient was given strict labor precaution and kick count and close follow- up with her primary OB office within a week or sooner as needed Patient verbalized understanding. All questions were answered YAA BROCK MD Sep 14, 2017 22:51
== END 2017-09-14 21:21 | disposition home or self-care (01) ==
LOC: OBT 18:51 → L-D 18:53 → OBT 21:21
PROVIDERS: ATTEND Obstetrics & Gynecology
DX: O26.843 Uterine size-date discrepancy, third trimester (principal); Z3A.37 37 weeks gestation of pregnancy
CPT/HCPCS: 76815; 76818; Z7500; G0463

== ENCOUNTER 2017-09-20 09:21 | Outpatient (CLI) | END 2017-09-20 10:50 | disposition home or self-care (01) ==

== ENCOUNTER 2017-09-20 14:21 | Inpatient (IN) | payer OTHER ==
[~2017-09-20] VITALS: Ht 165.1 cm; Wt 71.0 kg
[2017-09-20 15:14] VITALS: Ht 165.1 cm; Wt 71.0 kg
[2017-09-20 15:15] VITALS: BP 134/80; PULSE 91
[2017-09-20 15:25] LABS: BASOPHILS % 0.3 % (0.0-2.0); EOSINOPHILS % 0.3 % (0.0-7.0); HEMATOCRIT 32.1 % (37.0-47.0); LYMPHOCYTES # 2.3 10^3/ul (0.8-2.9); MEAN CORPUSCULAR HEMOGLOBIN 33.3 pg (29.0-33.0); MEAN CORPUSCULAR HGB CONC 34.3 g/dl (32.0-37.0); MEAN CORPUSCULAR VOLUME 97.3 fl (82.0-101.0); MEAN PLATELET VOLUME 10.4 fl (7.4-10.4); MONOCYTE # 0.4 10^3/ul (0.3-0.9); MONOCYTES % 5.3 % (0.0-11.0); NEUTROPHIL # 4.5 10^3/ul (1.6-7.5); NEUTROPHILS % 61.8 % (39.0-77.0); PLATELET COUNT 131 10^3/UL (140-415); RED CELL DISTRIBUTION WIDTH 12.9 % (11.5-14.5); WHITE BLOOD COUNT 7.2 10^3/ul (4.8-10.8)
[2017-09-20 15:42] LABS: INR 0.91; PROTIME 12.3 Sec (11.9-14.9)
[2017-09-20 15:43] LABS: PARTIAL THROMBOPLASTIN TIME 28.5 Sec (25.0-35.0)
[2017-09-20 15:44] LABS: ALBUMIN 3.1 g/dl (3.3-4.9); ALBUMIN/GLOBULIN RATIO 0.88; BILIRUBIN,INDIRECT 0.2 mg/dl (0-1.1); BILIRUBIN,TOTAL 0.2 mg/dl (0.2-1.3); CALCIUM 9.2 mg/dl (8.4-10.2); CREATININE 0.81 mg/dl (0.44-1.00); TOTAL PROTEIN 6.6 g/dl (6.1-8.1); URIC ACID 5.3 mg/dl (3.1-7.9)
[2017-09-20 16:11] LABS: ADD UMIC YES; UR ASCORBIC ACID 40 mg/dL (NEGATIVE); UR BILIRUBIN (Dip) NEGATIVE (NEGATIVE); UR BLOOD (Dip) NEGATIVE (NEGATIVE); UR CLARITY SLIGHTLY CLOUDY (CLEAR); UR COLOR YELLOW (YELLOW); UR GLUCOSE (Dip) NEGATIVE (NEGATIVE); UR KETONES (Dip) TRACE mg/dL (NEGATIVE); UR LEUKOCYTE ESTERASE (Dip) NEGATIVE Leu/ul (NEGATIVE); UR MUCUS FEW /HPF (NONE SEEN); UR NITRITE (Dip) NEGATIVE (NEGATIVE); UR RBC 1 /HPF (0-5); UR SPECIFIC GRAVITY (Dip) 1.025 (1.003-1.030); UR TOTAL PROTEIN (Dip) 3+ mg/dl (NEGATIVE); UR UROBILINOGEN (Dip) NEGATIVE (NEGATIVE)
--- NOTE | 2017-09-20 16:21 | TRIAGE ---
OB Triage Datetime Report Generated by CPN: 09/20/2017 16:21 Datetime: 09/20/2017 16:00 Stage of : OB Triage Level of Consciousness: Fully Conscious Frequency: 2UC/HR Monitor Mode: External Duration (sec)2399: 70-80 Quality: Mild Resting Tone [place]: Relaxed FHR Baseline Rate: 125 Monitor Mode: External US Variability: Moderate 6-25 bpm Accelerations: 15X15 Decelerations: None Category: Category I Pain Scale: 0 Pain Goal: 3 Membrane Status: Intact Vaginal Bleeding: None Datetime: 09/20/2017 15:11 Assessment Type: Triage Level of Consciousness: Fully Conscious DTR's/Clonus: DTRs 2+; No Clonus Headache: Denies Blurred Vision: No Respiratory Effort: Unlabored; Regular Rhythm; Equal Expansion Breath Sounds, Left: Clear and Equal Breath Sounds, Right: Clear and Equal Nausea/Vomiting: Denies RUQ Epigastric Pain: Denies Lower Extremities Edema: None Degree: None Upper Extremities Edema: None Degree: None Facial Edema: None History of Falling: (0) No Secondary Diagnosis: (0) No Ambulatory Aid: (0) Bedrest/Nurse Assist IV Therapy: (0) No Gait: (0) Normal/Bedrest/Immobile Mental Status: (0) Oriented to Own Ability Fall Score: 0 Fall Risk Score Definition: No Risk: No action required Datetime: 09/20/2017 15:10 Time of Arrival: 09/20/2017 14:15 EGA: 38.1 Arrived By: Ambulatory Arrived From: Office Chief Complaint: pt sent from ob office for EVAL. OF HBP Movement: Present Contractions: Denies/Absent Rupture of Membranes: Denies Vaginal Bleeding: None Vaginal Discharge: Denies Recent Sexual Intercouse: Denies Abdominal Trauma: Not Applicable Patient Complaints: None Time Provider Notified: 09/20/2017 16:15 Provider Notified: ABUSLEME Initial Plan: PIH PANEL/EFM Datetime: 09/20/2017 15:01 Monitor Mode: External Monitor Mode: External US Datetime: 09/20/2017 09:45 Fall Score: 0 Fall Risk Score Definition: No Risk: No action required Datetime: 09/20/2017 09:28 EGA: 38.1
[2017-09-20] MEDS ORDERED: IBUPROFEN 600 MG TAB PO PRN (16:30)
[2017-09-20] MEDS ORDERED: OXYTOCIN 30 UNITS/LR 500 ML IV PRN (16:30)
[2017-09-20] MEDS ORDERED: MISOPROSTOL 200 MCG TAB PR PRN (16:30)
[2017-09-20] MEDS ORDERED: LIDOCAINE 1% (MPF) 30 ML INJ INJ PRN (16:30)
[2017-09-20] MEDS ORDERED: METHYLERGONOVINE 0.2 MG INJ IM PRN (16:30)
[2017-09-20] MEDS ORDERED: DINOPROSTONE 10 MG VAG SUPP VAG ONE (16:30)
[2017-09-20] MEDS ORDERED: BUTORPHANOL 2 MG INJ IV PRN (16:30)
[2017-09-20] MEDS ORDERED: CARBOPROST 250 MCG INJ IM PRN (16:30)
[2017-09-20] MEDS ORDERED: OXYTOCIN 30 UNITS/LR 500 ML IV SCH ×2 (16:30)
[2017-09-20] MEDS: LACTATED RINGER'S 1,000 ML IV SCH (17:32)
[2017-09-20] MEDS ORDERED: LABETALOL 100 MG TAB ONE (17:44)
[2017-09-20] MEDS ORDERED: LABETALOL 100 MG TAB PO SCH (21:00)
[2017-09-21] VITALS (8 sets, daily range): BP systolic 134–157; BP diastolic 77–95; PULSE 64–75; RESP 18–19
[2017-09-21] MEDS: LACTATED RINGER'S 1,000 ML IV SCH (00:38)
[2017-09-21] MEDS ORDERED: FENTAnyl 2MCG/ML-ROPIV 0.2% 100 ML ONE (02:43)
[2017-09-21] MEDS ORDERED: ONDANSETRON 4 MG INJ IV PRN ×2 (03:30→04:00)
[2017-09-21] MEDS ORDERED: NALOXONE (0.4 MG/ML) INJ IV PRN (03:30)
[2017-09-21] MEDS ORDERED: DIPHENHYDRAMINE 50 MG INJ IV PRN (03:30)
[2017-09-21] MEDS ORDERED: EPHEDrine SULFATE 50 MG/5 ML SYG IV PRN (03:30)
[2017-09-21] MEDS ORDERED: OXYTOCIN 30 UNITS/LR 500 ML IV SCH ×2 (03:30→03:49)
[2017-09-21] MEDS ORDERED: FENTAnyl 2MCG/ML-ROPIV 0.2% 100 ML BAG EPI SCH (03:30)
[2017-09-21] MEDS ORDERED: ACETAMINOPHEN 325 MG TAB PO PRN ×2 (04:00)
[2017-09-21] MEDS ORDERED: DIPHENHYDRAMINE 25 MG CAP PO PRN (04:00)
[2017-09-21] MEDS ORDERED: OXYTOCIN 30 UNITS/LR 500 ML IV PRN (04:00)
[2017-09-21] MEDS ORDERED: MISOPROSTOL 200 MCG TAB PR PRN (04:00)
[2017-09-21] MEDS ORDERED: BENZOCAINE 20% 56 ML SPRAY TOP PRN (04:00)
[2017-09-21] MEDS ORDERED: CARBOPROST 250 MCG INJ IM PRN (04:00)
[2017-09-21] MEDS ORDERED: LANOLIN 7 GM TUBE TOP PRN (04:00)
[2017-09-21] MEDS ORDERED: DIBUCAINE 1% 30 GM OINT PR PRN (04:00)
[2017-09-21] MEDS ORDERED: METHYLERGONOVINE 0.2 MG INJ IM PRN (04:00)
[2017-09-21] MEDS ORDERED: HYDROCODONE/APAP (5/325) TAB PO PRN ×2 (04:00)
--- NOTE | 2017-09-21 04:01 | HP ---
Date/Time of Note Date/Time of Note DATE: 09/21/17 TIME: 03:54 OB - History Hx of Present Free Text/Dictation 22 years old female 2 para 1 with an EDC of October 01, 2017 previous vaginal delivery. mild preeclampsia. for induction of labor Last Menstrual Period: Dec 27, 2016 Estimated Due Date: Sep 21, 2017 : 2 Para: 1 Care: Good Care Ultrasounds: Normal mid trimester US Obstetrical Complications: Pre-eclampsia Medical Complications: None Past Family/Social History * Past Medical, Surgical, Family and Obstetric Histories reviewed from chart. Blood Type: O+ Rubella: not immune RPR/VDRL: Negative GBS Status: Negative HBsAG: Negative OB Admission Exam Vital Signs Vital Signs Vital Signs Date Time Temp Pulse Resp B/P Pulse Ox O2 Delivery O2 Flow Rate FiO2 09/20/17 15:15 99.2 91 134/80 98 Room Air Physical Exam HEENT: WNL Heart: Rhythm Normal Lungs: Clear, Equal Abdomen: WNL Extremities: Normal Reflexes: Normal Cervical Dilatation: Fingertip Effacement: 50% Station: -2 Membranes: Intact Heart Rate: 130's Accelerations: Accelerations Present Varibility: Moderate Contractions on Admission: None Last 72 hours Lab Results CBC & BMP 09/20/17 15:05 Liver Function Test 09/20/17 15:05 Alanine Aminotransferase (ALT/SGPT) 30 Albumin 3.1 L Alkaline Phosphatase 213 H Aspartate Amino Transf (AST/SGOT) 30 Direct Bilirubin 0.00 Total Protein 6.6 OB Assessment/Plan Reason for admission: induction of labor Other Assessment: Induction of labor for mild preeclampsia Plan: Induction Induction Method: per Misoprostol Protocol Other plan: Delivery XIAO GUAMAN MD Sep 21, 2017 04:01
--- NOTE | 2017-09-21 04:07 | LDN ---
Date/Time of Note Date/Time of Note DATE: 09/21/17 TIME: 04:02 Delivery Summary Patient was induced with Cervidil She had a precipitous vaginal delivery Baby boy 9 First degree perineal laceration Epidural anesthesia local anesthesia used Patient and baby tolerated it well No complications She has no dizziness headaches epigastric pain or visual disturbances Reflexes were normal, no edema Only one dose of labetalol was given Patient and baby are stable at this time Blood pressure is controlled Weeks of Gestation 38 Placenta Delivered: Spontaneously Meconium: none Episiotomy: No Perineal laceration: 1 Anesthesia type: Epidural Sponge & Needle done & correct: Yes All needle counts correct: Yes Any foreign bodies felt in the: No Problems: Infant Delivery Information Sex Infant Sex: male Apgars 1 Minute: 9 5 Minute: 9 Suctioning Nose & mouth suctioned at katty: Yes Umbilical Cord Umbilical cord with: 3 Vessels Cord presentations: no nuchal cord Cord Blood was obtained: Yes Mother & Baby Disposition Disposition Mom & Baby to Maternity; Good: Yes XIAO GUAMAN MD Sep 21, 2017 04:07
[2017-09-21] MEDS ORDERED: LABETALOL 200 MG TAB ONE (05:44)
[2017-09-21] MEDS ORDERED: LABETALOL 200 MG TAB PO ONE (06:00)
[2017-09-21] MEDS: IBUPROFEN 800 MG TAB PO SCH ×3 (07:15→17:50)
[2017-09-21] MEDS ORDERED: LABETALOL 100 MG TAB PO SCH (09:00)
[2017-09-21] MEDS: SENNA/DOCUSATE NA (8.6MG/50MG) TAB PO SCH ×2 (10:02→20:35)
[2017-09-21 10:43] LABS: BASOPHILS % 0.2 % (0.0-2.0); EOSINOPHILS % 0.1 % (0.0-7.0); LYMPHOCYTES # 2.1 10^3/ul (0.8-2.9); LYMPHOCYTES % 21.6 % (15.0-51.0); MEAN CORPUSCULAR HEMOGLOBIN 33.3 pg (29.0-33.0); MEAN CORPUSCULAR HGB CONC 34.4 g/dl (32.0-37.0); MEAN PLATELET VOLUME 10.6 fl (7.4-10.4); MONOCYTE # 0.7 10^3/ul (0.3-0.9); MONOCYTES % 7.1 % (0.0-11.0); NEUTROPHIL # 6.7 10^3/ul (1.6-7.5); NEUTROPHILS % 70.7 % (39.0-77.0); PLATELET COUNT 111 10^3/UL (140-415); RED CELL DISTRIBUTION WIDTH 12.7 % (11.5-14.5); WHITE BLOOD COUNT 9.5 10^3/ul (4.8-10.8)
[2017-09-21 10:55] LABS: ALBUMIN 2.6 g/dl (3.3-4.9); ALBUMIN/GLOBULIN RATIO 0.81; BILIRUBIN,INDIRECT 0.2 mg/dl (0-1.1); BILIRUBIN,TOTAL 0.2 mg/dl (0.2-1.3); CALCIUM 8.4 mg/dl (8.4-10.2); CREATININE 0.75 mg/dl (0.44-1.00); TOTAL PROTEIN 5.8 g/dl (6.1-8.1)
[2017-09-21 11:07] LABS: INR 0.9; PROTIME 12.2 Sec (11.9-14.9)
[2017-09-21 11:08] LABS: PARTIAL THROMBOPLASTIN TIME 26.9 Sec (25.0-35.0)
--- NOTE | 2017-09-21 11:24 | PN ---
Date/Time of Note Date/Time of Note DATE: 09/21/17 TIME: 11:20 OB Subjective Subjective Subjective Feeling good with no headaches dizziness double vision epigastric pain Blood pressure this morning was elevated and labetalol 200 mg was given BP now is controlled Not in pain nor bleeding Breast-feeding OB Objective Objective Objective Patient is stable with no visual disturbances no epigastric pain no leg edema normal reflexes Patient was warned about visual disturbances signs She was given instructions when to call the nurse IF epigastric pain or headaches dizziness she should call us immediately HEENT: WNL Heart: Rhythm Normal Lungs: Clear, Equal Abdomen: WNL Extremities: Normal Reflexes: Normal OB Assessment/Plan Reason for admission: induction of labor Other Assessment: Mild PIH XIAO GUAMAN MD Sep 21, 2017 11:24
[2017-09-21] MEDS: LABETALOL 200 MG TAB PO SCH (21:08)
[2017-09-22] VITALS: BP 120/70; RESP 17
[2017-09-22] MEDS: IBUPROFEN 800 MG TAB PO SCH ×5 (00:57→23:45)
[2017-09-22 04:00] VITALS: BP 125/80; PULSE 75; RESP 18
[2017-09-22 08:00] VITALS: BP 126/89; PULSE 75; RESP 19
[2017-09-22] MEDS: SENNA/DOCUSATE NA (8.6MG/50MG) TAB PO SCH ×2 (08:38→21:37)
[2017-09-22] MEDS: LABETALOL 200 MG TAB PO SCH ×2 (08:38→21:37)
[2017-09-22 10:08] LABS: BASOPHILS % 0.2 % (0.0-2.0); EOSINOPHILS % 0.2 % (0.0-7.0); HEMATOCRIT 30.8 % (37.0-47.0); HEMOGLOBIN 10.5 g/dl (12.0-16.0); LYMPHOCYTES # 2.3 10^3/ul (0.8-2.9); LYMPHOCYTES % 26.1 % (15.0-51.0); MEAN CORPUSCULAR HEMOGLOBIN 33.7 pg (29.0-33.0); MEAN CORPUSCULAR HGB CONC 34.1 g/dl (32.0-37.0); MEAN CORPUSCULAR VOLUME 98.7 fl (82.0-101.0); MEAN PLATELET VOLUME 10.2 fl (7.4-10.4); MONOCYTE # 0.5 10^3/ul (0.3-0.9); MONOCYTES % 5.2 % (0.0-11.0); NEUTROPHIL # 5.9 10^3/ul (1.6-7.5); NEUTROPHILS % 68.1 % (39.0-77.0); PLATELET COUNT 122 10^3/UL (140-415); RED BLOOD COUNT 3.12 10^6/ul (4.20-5.40); RED CELL DISTRIBUTION WIDTH 13.4 % (11.5-14.5); WHITE BLOOD COUNT 8.7 10^3/ul (4.8-10.8)
[2017-09-22 11:53] VITALS: BP 112/72; PULSE 76; RESP 19
--- NOTE | 2017-09-22 14:09 | PN ---
Date/Time of Note Date/Time of Note DATE: 09/22/17 TIME: 14:06 OB Subjective Subjective Subjective status post vaginal delivery day 1 afebrile doing well, no headaches dizziness nor epigastric pain, no visual disturbances. lochia normal uterus contracted normal reflexes OB Objective HEENT: WNL Heart: Rhythm Normal Lungs: Clear, Equal Abdomen: WNL Extremities: Normal Reflexes: Normal OB Assessment/Plan Reason for admission: induction of labor XIAO GUAMAN MD Sep 22, 2017 14:09
[2017-09-22 15:55] VITALS: BP 125/85; PULSE 72; RESP 19
[2017-09-22 19:50] VITALS: BP 133/87; PULSE 79; RESP 18
[2017-09-23 03:55] VITALS: BP 140/81; PULSE 74; RESP 20
[2017-09-23] MEDS: IBUPROFEN 800 MG TAB PO SCH ×2 (06:03→12:33)
[2017-09-23] MEDS ORDERED: DIPHTH/TET/ACEL PERTUSS (ADULT) 0.5 ML VIAL IM* ONE (09:00)
[2017-09-23] MEDS ORDERED: MEASLES,MUMPS,RUBELLA VACCINE INJ SC* ONE (09:00)
[2017-09-23] MEDS ORDERED: VARICELLA VACCINE LIVE/PF 1,350 UNIT/0.5 ML ML SC* ONE (09:00)
[2017-09-23] MEDS: SENNA/DOCUSATE NA (8.6MG/50MG) TAB PO SCH (09:04)
[2017-09-23] MEDS: LABETALOL 200 MG TAB PO SCH (09:05)
--- NOTE | 2017-09-23 11:16 | QN ---
Documentation Comment PPD#2 is stable stable +BM+voids No VB VS stable Gen NAD Abd soft NT NT Genitalia no blood at perinum --->discharge home on labatalol -->follow up with provider in 2 days ALISSA GAMBLE M.D. Sep 23, 2017 11:16
--- NOTE | 2017-09-23 11:19 | DS ---
Date/Time of Note Date/Time of Note DATE: 09/23/17 TIME: 11:18 Discharge Summary Admission/Discharge Info Admit Date/Time Sep 20, 2017 at 16:20 Discharge Date/Time Discharge Diagnosis ,gestational hypertension Hospital Course uneventful Home Meds Reported Medications Ferrous Sulfate* (Ferrous Sulfate*) 325 Mg Tabec, 325 MG PO DAILY, TAB 09/06/17 Multivit/Min/Fol Ac/Iron/Pren* ( S*) 1 Tab Tab, 1 TAB PO DAILY, TAB 12/16/14 Primary Care Provider Not On Staff Doctor ALISSA GAMBLE M.D. Sep 23, 2017 11:19
== END 2017-09-23 14:10 | disposition home or self-care (01) | DRG 775 ==
LOC: OBT 14:21 → L-D 14:21 → OBT 16:20 → L-D 17:12 → PP1 09-21 05:40
PROVIDERS: ADMIT Obstetrics & Gynecology; ATTEND Obstetrics & Gynecology
PROC: 3E033VJ Introduction of Other Hormone into Peripheral Vein, Percutaneous Approach (ICD-10-PCS; 2017-09-20)
PROC: 10E0XZZ Delivery of Products of Conception, External Approach (ICD-10-PCS; principal; 2017-09-21)
PROC: 0HQ9XZZ Repair Perineum Skin, External Approach (ICD-10-PCS; 2017-09-21)
DX: O70.0 First degree perineal laceration during delivery (principal); O16.4 Unspecified maternal hypertension, complicating childbirth; Z37.0 Single live birth; Z3A.38 38 weeks gestation of pregnancy
CPT/HCPCS: 36415; 62319; 80053; 81001; 84560; 85025; 85384; 85610; 85730; 86592; 86900; 86901; 87340; 90715; 90716; A4310; G0463; J2590; J3010; J7120